=== PATIENT | male | born 1955 | race Caucasian/White ===

== ENCOUNTER 2016-08-23 02:51 | Inpatient (IN) | payer OTHER ==
[2016-08-23 03:48] LABS: BASOPHIL 0.1 % (0-2); EOSINOPHIL 0.3 % (0-5); HCT 49.1 % (42.0-52.0); HGB 16.7 g/dl (13.2-18.0); MCH 31.2 pg (25.0-31.0); MCV 91.6 fL (78.0-100.0); MONOCYTE 15.7 % (0-12); MPV 11.1 fL (6.0-9.5); NEUTROPHIL 69.9 % (41-80); PLT 179 K/uL (150-400); RBC 5.36 M/uL (4.70-6.00); RDW 13.2 % (11.5-14.0); WBC 10.6 K/uL (4.0-10.5)
[2016-08-23 04:00] LABS: INR 1.06 (0.9-1.2); PROTHROMBIN TIME 13.4 SECONDS (11.7-14.0); PTT 27.6 SECONDS (23.2-31.4)
[2016-08-23 04:08] LABS: CREATININE 1.1 mg/dL (0.7-1.2)
[2016-08-23 04:23] LABS: LACTIC ACID 1.4 mmol/L (0.5-2.2)
[2016-08-23 05:05] LABS: BILIRUBIN 1+ mg/dL (NEGATIVE); BLOOD NEGATIVE Ery/uL (NEGATIVE); CLARITY CLEAR (CLEAR); COLOR YELLOW (YELLOW); GLUCOSE (U) NORMAL (NORMAL); KETONE (U) TRACE mg/dL (NEGATIVE); LEUKOCYTES NEGATIVE Leu/uL (NEGATIVE); NITRITE NEGATIVE (NEGATIVE); PROTEIN 2+ mg/dL (NEGATIVE); SPECIFIC GRAVITY >=1.030 (1.001-1.030)
[2016-08-23 05:08] LABS: SQUAMOUS EPITHELIAL CELLS RARE
[2016-08-23 11:11] LABS: TROPONIN T < 0.010 ng/mL
[2016-08-23 16:33] LABS: CKMB 2.08 ng/mL (0.97-4.94); TROPONIN T < 0.010 ng/mL
[2016-08-24 05:19] LABS: HCT 46.5 % (42.0-52.0); HGB 15.7 g/dl (13.2-18.0); MCH 31.1 pg (25.0-31.0); MCHC 33.8 g/dL (32.0-36.0); MCV 92.1 fL (78.0-100.0); MPV 11.2 fL (6.0-9.5); RBC 5.05 M/uL (4.70-6.00); RDW 13.1 % (11.5-14.0); WBC 6.6 K/uL (4.0-10.5)
[2016-08-24 05:37] LABS: CREATININE 0.9 mg/dL (0.7-1.2); POTASSIUM 4.2 mmol/L (3.5-5.1)
[2016-08-25 04:29] LABS: HCT 45.4 % (42.0-52.0); HGB 15.3 g/dl (13.2-18.0); MCH 31.4 pg (25.0-31.0); MCHC 33.7 g/dL (32.0-36.0); MCV 93.2 fL (78.0-100.0); MPV 11.1 fL (6.0-9.5); RBC 4.87 M/uL (4.70-6.00); RDW 12.9 % (11.5-14.0); WBC 7.6 K/uL (4.0-10.5)
[2016-08-25 04:54] LABS: POTASSIUM 4.3 mmol/L (3.5-5.1)
[2016-08-26 04:03] LABS: HCT 46.3 % (42.0-52.0); MCH 31.4 pg (25.0-31.0); MCHC 34.6 g/dL (32.0-36.0); MCV 90.8 fL (78.0-100.0); MPV 10.6 fL (6.0-9.5); RBC 5.1 M/uL (4.70-6.00); RDW 12.6 % (11.5-14.0); WBC 8.2 K/uL (4.0-10.5)
[2016-08-26 04:18] LABS: CREATININE 0.9 mg/dL (0.7-1.2); POTASSIUM 4.6 mmol/L (3.5-5.1)
[2016-08-26] MEDS ORDERED: CRESTOR5 MG PO (10:37)
[2016-08-26] MEDS ORDERED: ASPIRIN CHEWABL81 MG PO (10:37)
[2016-08-26] MEDS ORDERED: TAMIFLU 75MG CA75 MG PO (10:38)
[2016-08-26] MEDS ORDERED: XARELTO20 MG PO (10:38)
[2016-08-26] MEDS ORDERED: COREG25 MG PO (10:38)
== END 2016-08-26 11:10 | disposition home or self-care (01) | DRG 309 ==
LOC: FER 02:51 → FTCU 06:38
PROVIDERS: Emergency Medicine; Internal Medicine; ADMIT Internal Medicine
PROC: 3E0234Z Introduction of Serum, Toxoid and Vaccine into Muscle, Percutaneous Approach (ICD-10-PCS; principal; 2016-08-23)
DX: I48.91 Unspecified atrial fibrillation (principal); E87.1 Hypo-osmolality and hyponatremia; I11.9 Hypertensive heart disease without heart failure; I10 Essential (primary) hypertension; I95.1 Orthostatic hypotension; J09.X2 Influenza due to identified novel influenza A virus with other respiratory manifestations; E86.0 Dehydration; E78.5 Hyperlipidemia, unspecified; Z79.82 Long term (current) use of aspirin; Z79.01 Long term (current) use of anticoagulants; I25.10 Atherosclerotic heart disease of native coronary artery without angina pectoris; I25.2 Old myocardial infarction; Z87.891 Personal history of nicotine dependence; S01.91XA Laceration without foreign body of unspecified part of head, initial encounter; W19.XXXA Unspecified fall, initial encounter; Z23 Encounter for immunization
CPT/HCPCS: 36415; 70450; 71010; 71275; 80048; 81001; 82550; 82553; 83605; 84443; 84484; 85025; 85610; 85730; 87040; 87088; 87804; 87899; 90471; 90715; 93005; 94010; Q9967

== ENCOUNTER → 2022-01-15 | Day surgery (SDC) | payer OTHER ==
[~2022-01-15] VITALS: Ht 182.9 cm; Wt 97.7 kg
[~2022-01-15] MED LIST: AMIODARONE HCL200 M1 PO; ASPIRIN CHEWABL81 MG PO; COREG25 MG PO; CRESTOR5 MG PO; OMEPRAZOLE40 MG PO; TAMIFLU 75MG CA75 MG PO; XARELTO20 MG PO
== END | disposition home or self-care (01) ==
LOC: FAS 01-12 10:15
DX: D12.3 Benign neoplasm of transverse colon (principal); D12.2 Benign neoplasm of ascending colon; K63.5 Polyp of colon; K31.9 Disease of stomach and duodenum, unspecified; K44.9 Diaphragmatic hernia without obstruction or gangrene; K31.7 Polyp of stomach and duodenum; I25.10 Atherosclerotic heart disease of native coronary artery without angina pectoris; K21.9 Gastro-esophageal reflux disease without esophagitis; I10 Essential (primary) hypertension; I25.2 Old myocardial infarction; Z87.891 Personal history of nicotine dependence; Z95.5 Presence of coronary angioplasty implant and graft
CPT/HCPCS: J2250; J2704; J7120